=== PATIENT | female | born 1965 | race Caucasian/White ===

== ENCOUNTER 2023-06-27 17:42 | Emergency (ER) | payer BC ==
[~2023-06-27] VITALS: Ht 157.5 cm; Wt 60.8 kg
[2023-06-27 17:50] VITALS: BP 120/69; PULSE 103; RESP 16; TEMP 102.9; O2SAT 96
[2023-06-27] MEDS ORDERED: ACETAMINOPHEN EXTRA STRENGTH 500 MG TAB PO ONE (17:55)
[2023-06-27] MEDS ORDERED: PROM118S5 PO (18:50)
[2023-06-27] MEDS ORDERED: ACET-10509 PO (18:50)
[2023-06-27 19:12] LABS: FLU A ANTIGEN POSITIVE (NEGATIVE); FLU B ANTIGEN NEGATIVE (NEGATIVE)
[2023-06-27] MEDS ORDERED: TAM75 PO (19:14)
== END 2023-06-27 20:08 | disposition home or self-care (01) ==
LOC: MED 17:42
DX: J10.1 Influenza due to other identified influenza virus with other respiratory manifestations (principal); Z20.822 Contact with and (suspected) exposure to COVID-19; Z79.899 Other long term (current) drug therapy
CPT/HCPCS: 71045; 99284